=== PATIENT | female | born 2005 | race African-American/Black ===

== ENCOUNTER 2024-12-05 20:04 | Emergency (ER) | payer MEDICAID, OTHER, SELFPAY ==
[2024-12-05] MEDS ORDERED: Ondansetron ODT 4 MG TAB ONE (20:40)
[2024-12-05 21:21] LABS: Hematocrit 36.7 % (36.0-47.0); Mean Corpuscular HGB CONC 32.8 g/dL (32.0-36.0); Mean Corpuscular Hemoglobin 28.1 pg (25.0-35.0); Mean Corpuscular Volume 85.7 fl (78.0-98.0); Mean Platelet Volume 8.1 fL (7.4-10.4); Platelet Count 243 10x3/uL (130-400); RBC Distribution Width 11.4 % (11.5-14.5); Red Blood Cell (RBC) Count 4.28 mill/uL (4.00-5.20); White Blood Cell (WBC) Count 3.7 10x3/uL (4.8-10.8)
[2024-12-05 21:48] LABS: Eosinophils 1 % (0-10); Lymphocytes 63 % (28-48); MDiff Complete? YES; Monocytes 7 % (0-4); Neutrophil 29 % (31-61); Platelet Adequacy Comment Appears Adequate
== END 2024-12-05 21:31 | disposition home or self-care (01) ==
LOC: NAV ERS 20:04
DX: R53.83 Other fatigue (principal)
CPT/HCPCS: 36415; 85025; 99283; Q0162

== ENCOUNTER 2025-09-06 21:48 | Emergency (ER) | payer OTHER ==
[2025-09-06 22:51] LABS: Pregnancy Test - Urine (BHCG) Negative (Negative); Pregu Control Background? CLEAR/WHITE (CLR/WHITE); Pregu Control Bar Appear? YES (CONTROL BAR)
== END 2025-09-06 23:27 | disposition home or self-care (01) ==
LOC: NAV ERS 21:48
DX: R11.2 Nausea with vomiting, unspecified (principal); R05.9 Cough, unspecified; R09.89 Other specified symptoms and signs involving the circulatory and respiratory systems; R11.0 Nausea
CPT/HCPCS: 81025; 87428; 99283; Q0162

== ENCOUNTER 2025-09-18 06:57 | Emergency (ER) | payer OTHER ==
[2025-09-18 07:31] LABS: Glucose, Urine (Dipstick) Negative (Negative); Leukocyte Trace (Negative); Pregnancy Test - Urine (BHCG) Negative (Negative); Pregu Control Background? CLEAR/WHITE (CLR/WHITE); Pregu Control Bar Appear? YES (CONTROL BAR); Protein, Urine (Dipstick) Trace mg/dL (Neg-Trace); Specific Gravity, Urine 1.025 (1.005-1.030)
[2025-09-18 07:36] LABS: Bacteria/HPF 1+ HPF (None Seen); CAUTI Indications for Culture Dysuria,urgency,freq
[2025-09-18 07:37] LABS: Urine Culture Reflex No No
[2025-09-18] MEDS ORDERED: cefTRIAXone (ROCEPHIN) 1 GM VIAL ONE (09:05)
[2025-09-18] MEDS ORDERED: Lidocaine 1% (PF) 30 ML VIAL ONE (09:05)
[2025-09-19 00:10] LABS: Chlam.trachomatis by PCR,Urine Not Detected (NotDetected); GC N.gonorrhoeae PCR,UrineVOID Not Detected (NotDetected)
== END 2025-09-18 09:18 | disposition home or self-care (01) ==
LOC: NAV ERS 06:57
DX: N76.0 Acute vaginitis (principal); B96.89 Other specified bacterial agents as the cause of diseases classified elsewhere; R30.0 Dysuria; J02.9 Acute pharyngitis, unspecified; Z20.2 Contact with and (suspected) exposure to infections with a predominantly sexual mode of transmission
CPT/HCPCS: 81001; 81025; 87081; 87086; 87210; 87430; 87480; 87491; 87510; 87591; 87660; 96372; 99283; J0696; J2003